=== PATIENT | female | born 1980 | race Two or more races ===

== ENCOUNTER → 2018-02-20 | Outpatient (CLI) | payer SELFPAY ==
[2018-02-22 06:11] LABS: ESTRADIOL LEVEL 103.3 pg/mL (.)
== END | disposition home or self-care (01) ==
LOC: LAB 17:30
PROVIDERS: ATTEND General Practice
DX: E34.9 Endocrine disorder, unspecified (principal)
CPT/HCPCS: 36415; 82670; 82679; 84144